=== PATIENT | male | born 1950 | race Caucasian/White ===

== ENCOUNTER 2020-11-03 13:47 | Emergency (ER) | payer MEDICARE ==
[~2020-11-03] VITALS: Ht 182.9 cm; Wt 86.2 kg
[~2020-11-03 13:47] MED LIST: AMARYL4 MG PO; ASPIRIN325 PO; CARVEDILOL25 MG PO; CARVEDILOL3.125 MG PO; COZAAR100 MG PO; GLUCOPHAGE1000 MG PO; LAMICTAL XR25 MG PO; LAMICTAL XR50 MG PO; LISINOPRIL20 MG PO; NEURONTIN 300300 M1 PO; SIMVASTATIN80 MG PO; TRADJENTA5 MG PO
[2020-11-03] MEDS ORDERED: CEPHALEXIN500 MG PO (14:18)
[2020-11-03 14:35] VITALS: BP 135/65
== END 2020-11-03 14:36 | disposition home or self-care (01) ==
LOC: M.ERS 13:47
DX: L03.011 Cellulitis of right finger (principal); E11.9 Type 2 diabetes mellitus without complications

== ENCOUNTER 2021-05-16 12:19 | Emergency (ER) | payer MEDICARE ==
[~2021-05-16] VITALS: Ht 182.9 cm; Wt 81.7 kg
[~2021-05-16 12:19] MED LIST changes: +CEPHALEXIN500 MG PO
[2021-05-16] MEDS ORDERED: HYDROCODON-ACE1 EAC7 PO ×2 (13:16→13:46)
[2021-05-16] MEDS ORDERED: ZOFRAN ODT4 MG DISSOLVE ×2 (13:16→13:46)
[2021-05-16 13:18] LABS: ABSOLUTE LYMPHOCYTES 1.6 thou/uL (0.8-5.3); ABSOLUTE MONOCYTES 0.4 thou/uL (0.0-1.2); ABSOLUTE NEUTROPHILS 8.9 thou/uL (1.6-8.1); BASOPHILS 0.4 %; EOSINOPHILS 0.1 %; HEMATOCRIT 48.5 % (42.0-52.0); HEMOGLOBIN 16.7 gm/dL (14.0-18.0); LYMPHOCYTES 14.3 %; MCH 29.8 pg (26.0-34.0); MCHC 34.3 g/dL (28.0-37.0); MCV 86.9 fL (80.0-100.0); MONOCYTES 3.9 %; NUCLEATED RBCS 1 /100WBC; PLATELET COUNT* 169 thou/uL (150-400); POLYS 81.3 %; RBC 5.58 mil/uL (4.50-6.00); RDW-CV 13.7 % (10.5-14.5); WBC 10.9 thou/uL (4.0-11.0)
[2021-05-16 13:25] LABS: CALCIUM 9.7 mg/dL (8.5-10.1); CREATININE 1.4 mg/dL (0.6-1.3)
[2021-05-16 13:30] LABS: ALBUMIN 4.3 g/dL (3.4-5.0); TOTAL PROTEIN 8.1 g/dL (6.4-8.2)
[2021-05-16] MEDS ORDERED: TOPROL XL100 MG PO (13:35)
[2021-05-16] MEDS ORDERED: IMDUR 60 MG TAB60 M1 PO (13:35)
[2021-05-16] MEDS ORDERED: NITROSTAT0.4 M1 SUBLING (13:36)
[2021-05-16 14:04] VITALS: BP 220/70
--- NOTE | 2021-05-16 14:53 | EKG ---
[place] [address] ELECTROCARDIOGRAM REPORT Name: GAL PEREIRA Room: [facility]#: [id number] Admission: 05/16/21 Attend Phys: Discharge: 05/16/21 Date of : 48 Date of Service: 05/16/21 1310 Report #: [id number] THIS REPORT FOR: //name// [facility] ED Test Date: 2021-05-16 Test Time: 13:10:06 Pat Name: GAL PEREIRA Department: Room: Gender: Toggle Press Operator: [facility] : 1950 Requested By: Chadd Dewitt Order Number: [id number] MD: Chip Mercado Measurements Intervals [place] Rate: 48 P: 34 MI: 150 QRS: 14 QRSD: 161 T: 7 QT: 465 QTc: 416 Interpretive Statements Sinus bradycardia RBBB Inferior infarct, old Compared to ECG 03/08/2013 00:27:32 Myocardial infarct finding now present rate has slowed RIGHT BUNDLE BRANCH BLOCK now noted Electronically Signed On 05-16-2021 14:53:31 RESIDENTIAL TEAM LEADER by Chip Mercado [email or web address] <ELECTRONICALLY SIGNED> By: Chip Mercado MD, FACC 05/16/21 1453 1310 1310 Chip Mercado MD, [facility] /EPI
== END 2021-05-16 14:05 | disposition home or self-care (01) ==
LOC: M.ERS 12:19
PROVIDERS: Family Medicine
DX: H57.11 Ocular pain, right eye (principal); E11.9 Type 2 diabetes mellitus without complications; Z79.82 Long term (current) use of aspirin; Z79.899 Other long term (current) drug therapy